=== PATIENT | male | born 1985 | race Caucasian/White ===

== ENCOUNTER 2020-01-15 17:09 | Emergency (ER) | payer MEDICAID ==
[~2020-01-15] VITALS: Ht 177.8 cm; Wt 70.5 kg
[2020-01-15] MEDS ORDERED: clindamycin phosphate 150mg/ml inj. IM ONE (18:25)
[2020-01-15 19:05] VITALS: BP 145/79
== END 2020-01-15 19:09 | disposition home or self-care (01) ==
LOC: ER 17:10
DX: K04.7 Periapical abscess without sinus (principal); F11.90 Opioid use, unspecified, uncomplicated
CPT/HCPCS: 41800; 96372; 99284; J3490

== ENCOUNTER 2020-02-12 17:40 | Emergency (ER) | payer MEDICAID ==
[~2020-02-12] VITALS: Ht 177.8 cm; Wt 79.5 kg
[2020-02-12 17:55] VITALS: BP 160/112
[2020-02-12] MEDS ORDERED: IBUP-1984 PO (18:14)
[2020-02-12] MEDS ORDERED: CLIN300C70 PO (18:14)
== END 2020-02-12 18:53 | disposition home or self-care (01) ==
LOC: ER 17:40
DX: K04.7 Periapical abscess without sinus (principal); F11.90 Opioid use, unspecified, uncomplicated; Z79.2 Long term (current) use of antibiotics
CPT/HCPCS: 99283

== ENCOUNTER 2021-06-18 08:19 | Emergency (ER) | payer MEDICAID ==
[~2021-06-18] VITALS: Ht 177.8 cm; Wt 76.6 kg
[2021-06-18 08:29] VITALS: BP 131/92
[2021-06-18] MEDS ORDERED: IBUP-1985 PO (11:57)
[2021-06-18] MEDS ORDERED: PENI500T2 PO (11:57)
== END 2021-06-18 12:31 | disposition home or self-care (01) ==
LOC: ER 08:20
DX: K04.7 Periapical abscess without sinus (principal); F17.200 Nicotine dependence, unspecified, uncomplicated; F12.90 Cannabis use, unspecified, uncomplicated; Z79.899 Other long term (current) drug therapy
CPT/HCPCS: 99283